=== PATIENT | male | born 1950 | race Caucasian/White ===

== ENCOUNTER 2021-04-05 15:29 | Inpatient (IN) ==
[2021-04-05] MEDS ORDERED: MoRPHine SULFATE 10 MG/ML CARP/VIAL ONE (15:48)
[2021-04-05] MEDS ORDERED: KETOROLAC TROMETHAMINE 15 MG/ML VIAL IV ONE (15:50)
[2021-04-05] MEDS ORDERED: MoRPHine SULFATE 10 MG/ML CARP/VIAL IV STA (15:50)
[2021-04-05] MEDS ORDERED: SODIUM CHLORIDE 0.9% 1000ML 1,000 ML IV ONE (15:50)
--- NOTE | 2021-04-05 15:54 | Emergency Department Note ---
Impression & Plan Prostate CA, Bladder cancer, Abdominal pain ED Provider Note NAME: JOSEPH FARR AGE: 71 SEX: M : 1950 ARRIVES VIA: Walk-In INFORMANT: Patient, ED PROVIDER(S): Kevin Schneider DO CHIEF COMPLAINT: Left testicle abdominal and groin pain HPI: Patient is a 71-year-old male with a past medical history of bladder cancer which has migrated in the pelvis to affect nerves. He has been having pain in his left groin/testicle and lower belly since this past October. It has been gradually getting worse. Pain is currently a 10 out of 10 sharp and stabbing in nature. It is the same type of pain in the same location but just worse. He was at pain management and they attempted to a nerve block but he has had persistent pain. They are unable to get him under control and consequently referred him in for admission. There are discussed with hospitalist. He takes 8 mg of Dilaudid every 4 hours and wears a 50 mcg fentanyl patch. Last bowel movement was today. Denies any nausea or vomiting. No dysuria urgency or frequency. No other exacerbating or remitting factors. ROS: See above HPI for pertinent positives & negatives. A total of 10 systems reviewed and were otherwise negative. PAST MEDICAL HISTORY:See Below PAST SURGICAL HISTORY:See Below FAMILY HISTORY:See Below SOCIAL HISTORY:See Below HOME MEDICATIONS:See Below ALLERGIES:See Below VITALS:See Below PHYSICAL EXAMINATION: GENERAL: Sitting up in bed, significant distress crying and tearful holding left belly EYE EXAM: normal conjunctiva. OROPHARYNX: no exudate, no erythema, lips, buccal mucosa, and tongue normal and mucous membranes are moist NECK: supple, no nuchal rigidity, no adenopathy, non-tender LUNGS: Clear to auscultation. Normal chest wall mechanics HEART: no murmurs, S1 normal and S2 normal : Normal external genitalia. No tenderness in the testicles. ABDOMEN: abdomen soft, non-tender, normo-active bowel sounds, no masses, no rebound or guarding. UPPER EXTREMITIES: upper extremities are grossly normal. LOWER EXTREMITIES: No pitting edema. NEURO EXAM: Normal sensorium, cranial nerves II-XII grossly intact, normal speech, no gross weakness of arms, no gross weakness of legs. MEDICAL DECISION MAKING: Patient is a 71-year-old male who presents the ER for abdominal pain which has been present since October. He was sent in for admission for intrathecal pump placement tomorrow. IV was established blood work was obtained. Labs show no significant leukocytosis and mild anemia 11. BMP with slightly elevated chloride at 110. LFTs bilirubin was unremarkable. Lipase was normal. Patient was given IV fluids morphine x2 and Toradol. Patient was updated bedside discussed with hospitalist admitted for further work-up. Triage Nursing notes reviewed. Limited review of prior medical records performed Vital Signs: reviewed and remarkable for HTN Differential diagnosis: Differential diagnoses includes but is not limited to gastritis, peptic ulcer disease, GERD, gallbladder disease, pancreatitis, small bowel obstruction, acute coronary syndrome, pericarditis, ischemic bowel, irritable bowel disease, irritable bowel syndrome, appendicitis, diverticulitis, malignancy, hernia, urinary tract infection, torsion, perforation, trauma, infectious. ER treatment provided: See below Diagnostics interpreted by me: ECG: none Cardiac Monitoring: An order was placed for continuous cardiac monitoring. The monitor shows a rate of 92 with sinus rhythm. Laboratory studies: As stated above and show below. Imaging studies: See below Consultation(s): Discussed with the hospitalist for further evaluation Procedures: none Critical Care: None Past Med/Surg History Medical History Allergic rhinitis Asthma Bladder cancer CAD (coronary artery disease) Cancer related pain Chronic kidney disease (CKD) stage G3a/A1, moderately decreased glomerular filtration rate (GFR) between 45-59 mL/min/1.73 square meter and albuminuria creatinine ratio less than 30 mg/g First degree AV block GERD (gastroesophageal reflux disease) History of alcohol dependence History of [place] (myocardial infarction) HTN (hypertension) Hyperlipidemia Lumbar disc herniation with radiculopathy L2-3 extrusion Lumbosacral spondylosis Peripheral neuropathy Prostate CA Surgical History H/O prostatectomy History of cardiac catheterization History of cataract extraction History of colonoscopy History of cystoscopy History of esophagogastroduodenoscopy (EGD) History of hernia repair History of ileal conduit History of incision and drainage History of laparotomy History of prostate biopsy History of skin graft History of total cystectomy Status post surgical removal and fulguration of bladder neoplasm Family History Mother Bone cancer Social History Smoking Status: Never smoker Tobacco Type: Cigarettes Hx Alcohol Use: No Hx Substance Use: No Preferred Language: [place] Communication Ability: Effective Hearing Ability: Normal Beliefs That Will Affect Care: None marital status: Current Living Situation: Spouse current occupational status: retired Feels Safe at Home: Yes Safety Concerns: Feels Safe At This Time Assistive Devices: Cane Allergies Allergies Allergy/AdvReac Type Severity Reaction Status Date / Time Sulfa (Sulfonamide Allergy Severe lips swell Verified 04/05/21 13:18 Antibiotics) sulfamethoxazole Allergy Intermediate Rash Verified 04/05/21 13:18 [From Bactrim] trimethoprim [From Bactrim] Allergy Intermediate Rash Verified 04/05/21 13:18 baclofen Allergy Unknown Unverified 04/05/21 13:18 cannabidiol (CBD) extract Allergy Unknown Verified 04/05/21 13:18 Home Meds Home Medications Medication Instructions Recorded Confirmed acetaminophen 325 mg tablet 650 mg PO QID PRN tab 01/07/21 04/05/21 Lactobacillus acidophilus 1,000 mmu cells PO DAILY@1200 04/05/21 04/05/21 [Acidophilus] albuterol sulfate [Ventolin HFA] 2 puff INHALATION Q6H PRN 04/05/21 04/05/21 amlodipine 5 mg PO BID 04/05/21 04/05/21 aspirin [Aspir-81] 81 mg PO DAILY 04/05/21 04/05/21 atorvastatin 80 mg PO HS 04/05/21 04/05/21 bisacodyl 10 mg DC DAILY PRN 04/05/21 04/05/21 carisoprodol [Soma] 350 mg PO TID PRN 04/05/21 04/05/21 carvedilol 12.5 mg PO BID 04/05/21 04/05/21 clotrimazole 1 applic TOPICAL BID PRN 04/05/21 04/05/21 cyanocobalamin (vitamin B-12) 1,000 mcg PO DAILY 04/05/21 04/05/21 [Vitamin B-12] fentanyl 1 patch TRANSDERMAL Q72H 04/05/21 04/05/21 fluticasone propion-salmeterol 1 inh INHALATION BID 04/05/21 04/05/21 [Wixela Inhub] fluticasone propionate [Flonase] 1 spray INTRANASAL DAILY PRN 04/05/21 04/05/21 hydrochlorothiazide 12.5 mg PO DAILY 04/05/21 04/05/21 hydromorphone 8 mg PO Q4H PRN 04/05/21 04/05/21 losartan 50 mg PO DAILY 04/05/21 04/05/21 lubiprostone [Amitiza] 16 mcg PO BID 04/05/21 04/05/21 melatonin 5 mg PO HS PRN 04/05/21 04/05/21 montelukast 10 mg PO DAILY 04/05/21 04/05/21 naloxegol [Movantik] 25 mg PO DAILY 04/05/21 04/05/21 ondansetron 4 mg PO Q8H PRN 04/05/21 04/05/21 pantoprazole 40 mg PO DAILY 04/05/21 04/05/21 polyethylene glycol 3350 17 g PO DAILY 04/05/21 04/05/21 senna 17.2 mg PO BID 04/05/21 04/05/21 triamcinolone acetonide 1 applic TOPICAL BID PRN 04/05/21 04/05/21 Results & Data (ED) Vital Signs Vital Signs - 24 hr 04/05/21 15:35 Temperature 36.7 C Temperature Source Oral Pulse Rate 86 Respiratory Rate 20 Respiratory Effort / Characteristics Non-Labored Respiratory Depth Normal Blood Pressure 156/85 H Blood Pressure Mean 108 Pulse Oximetry 96 Oxygen Delivery Method Room Air Sepsis Recent Fever Within 48 Hours No Sepsis New/Unexplained Change in Mental Status N/A Sepsis Action Taken by Nursing No Action Required Laboratory Data Result diagrams: 04/05/21 17:07 04/05/21 17:07 Lab Results 04/05/21 04/05/21 Range/Units 16:04 16:04 COVID-19 Eval Order Covid19 at [facility] SARS-CoV-2 (PCR) NEGATIVE (Negative) Administered Medications Sodium Chloride (Nss 1000ml) 1,000 mls @ 15 mls/hr IV .Q24H YONATHAN Stop: 04/19/21 19:16 Last Admin: 04/05/21 21:44 Dose: 15 mls/hr Documented by: [id number] Morphine Sulfate (Morphine Sulfate Head Wrestling Coach 30 Mg/30 Ml) 30 mg IV PRN PRN; Protocol PRN Reason: [employer] Pain Titration Stop: 04/19/21 19:14 Last Admin: 04/05/21 21:45 Dose: 30 mg Documented by: [id number] Cosigned by: [id number] Discontinued Medications Sodium Chloride (Nss 1000ml) 1,000 mls @ 999 mls/hr IV .Q1H1M ONE Stop: 04/05/21 16:50 Last Infusion: 04/05/21 16:58 Dose: 0 mls/hr Documented by: [id number] Admin: 04/05/21 15:58 Dose: 999 mls/hr Documented by: [id number] Ketorolac Tromethamine (Ketorolac Tromethamine 15 Mg/Ml Vial) 15 mg IV NOW ONE Stop: 04/05/21 15:51 Last Admin: 04/05/21 15:59 Dose: 15 mg Documented by: [id number] Morphine Sulfate (Morphine Sulfate 10 Mg/Ml Carp/Vial) Confirm Administered Dose 10 mg .ROUTE .STK-MED ONE Stop: 04/05/21 15:49 Last Admin: 04/05/21 19:19 Dose: Not Given Documented by: [id number] Morphine Sulfate (Morphine Sulfate 10 Mg/Ml Carp/Vial) 8 mg IV NOW STA Stop: 04/05/21 15:51 Last Admin: 04/05/21 15:53 Dose: 8 mg Documented by: [id number] Morphine Sulfate (Morphine Sulfate 4 Mg/Ml 1 Ml Carp\Vial) 4 mg IV NOW STA Stop: 04/05/21 16:24 Last Admin: 04/05/21 16:29 Dose: 4 mg Documented by: [id number] Morphine Sulfate (Morphine Sulfate 4 Mg/Ml 1 Ml Carp\Vial) 4 mg IV NOW STA Stop: 04/05/21 16:55 Last Admin: 04/05/21 16:59 Dose: 4 mg Documented by: [id number] Discharge Plan Visit Data Chief Complaint: Pain (Generalized) Stated Complaint: PAIN ED Provider: Kevin Schneider Discharge Problem: Prostate CA, Bladder cancer, Abdominal pain Patient Disposition: Admitted As Inpatient Discharge Instructions Interventions: ED Discharge Assessment Last Done: 04/05/21 18:31 Discharge Problem: Bladder cancer Qualifiers: Bladder location: unspecified site Qualified Code(s): C67.9 - Malignant neoplasm of bladder, unspecified Abdominal pain Qualifiers: Abdominal location: unspecified location Qualified Code(s): R10.9 - Unspecified abdominal pain
[2021-04-05] MEDS ORDERED: MoRPHine SULFATE 4 MG/ML 1 ML CARP\\VIAL IV STA ×2 (16:23→16:54)
--- NOTE | 2021-04-05 16:46 | History & Physical Report ---
Date of Service April 05, 2021 Assessment & Plan (1) Bladder cancer: (2) Cancer related pain: This is a 71-year-old male who has significant past medical history of CAD, HTN, HLD, hypertriglyceridemia, first-degree AV block, asthma, GERD, history of prostate cancer, metastatic bladder cancer status post resection with ileal conduit now following palliative care secondary to uncontrolled pain presents to ED from pain management to be admitted for MEAT APPRENTICE pump. Patient with metastatic bladder cancer status post cystectomy and ileoconduit being admitted for uncontrolled cancer related pain. He follows with palliative care medicine for pain management and recently pain management with Dr. Delgado. On 03/28 he underwent a gastric femoral nerve block and today underwent a superior hypogastric nerve block with mild relief. admit to med tele consult Pain management - Dr. Delgado to see pt later this evening NPO after midnight, ASA on hold morphine MEAT APPRENTICE pump ordered, max 10mg per hour, may need to increase based on needs PO dilaudid 4mg q3h prn continue fentanyl patch 50mcg q72hr, due to be changed tomorrow scheduled APAP 1000g TID prn ibuprofen 600mg QID fall precautions (3) CAD (coronary artery disease): no chest pain/sob continue losartan, statin ASA on hold due to intrathecal pump placement tomorrow resume when able per Dr. Delgado (4) HTN (hypertension): bp stable continue amlodipine, losartan and hctz (5) Hyperlipidemia: continue statin (6) Chronic kidney disease (CKD) stage G3a/A1, moderately decreased glomerular filtration rate (GFR) between 45-59 mL/min/1.73 square meter and albuminuria creatinine ratio less than 30 mg/g: baseline cr 1.1-1.4 bun/cr pending monitor renal fxn, prn ibuprofen ordered (7) DVT prophylaxis: SCD/TEDS Dispo: med tele PCP: Augustin Fish FULL Code Pt was seen and examined in collaboration with Dr. Hillman, please see addendum History of Present Illness Chief Complaint: Uncontrolled metastatic cancer pain referred by pain management Primary Care Provider: NO PCP This is a 71-year-old male who has significant past medical history of CAD, HTN, HLD, hypertriglyceridemia, first-degree AV block, asthma, GERD, history of prostate cancer, metastatic bladder cancer status post resection with ileal conduit now following palliative care secondary to uncontrolled pain presents to ED from pain management to be admitted for MEAT APPRENTICE pump. He is currently established with palliative medicine he was been managing his pain. He is currently on fentanyl patch which was recently increased to 50 mcg every 72 hours, Dilaudid 8 mg every 4 hours as needed, Soma as needed and today underwent a superior hypogastric nerve block by pain management. On 03/28 he also underwent a genitofemoral nerve block. Due to uncontrolled pain he was recommended for admission for morphine MEAT APPRENTICE pump and intrathecal pump. Currently he complains of lower abdominal pain that is fleeting, comes and goes, described as burning, worsening. He does feel it gets improved with NSAIDS but these were stopped due to increase in renal function. He states he will be fine one minute and then the next pain will take him to the ground. is at bedside. He also has tried ice with minimal relief. He denies f/c/s, dizziness, lightheaded, chest pain, sob, uri sx, cough, n/v/d. He does have chronic opiate induced constipation which has been improved with amitiza. He is hemodynamically stable and labs are pending. Allergies Allergy/AdvReac Type Severity Reaction Status Date / Time Sulfa (Sulfonamide Allergy Severe lips swell Verified 04/05/21 13:18 Antibiotics) sulfamethoxazole Allergy Intermediate Rash Verified 04/05/21 13:18 [From Bactrim] trimethoprim [From Bactrim] Allergy Intermediate Rash Verified 04/05/21 13:18 baclofen Allergy Unknown Unverified 04/05/21 13:18 cannabidiol (CBD) extract Allergy Unknown Verified 04/05/21 13:18 Home Medications Medication Instructions Recorded Confirmed Type acetaminophen 325 mg tablet 650 mg PO QID PRN tab 01/07/21 04/05/21 History Lactobacillus acidophilus 1,000 mmu cells PO DAILY@1200 04/05/21 04/05/21 History [Acidophilus] albuterol sulfate [Ventolin HFA] 2 puff INHALATION Q6H PRN 04/05/21 04/05/21 History amlodipine 5 mg PO BID 04/05/21 04/05/21 History aspirin [Aspir-81] 81 mg PO DAILY 04/05/21 04/05/21 History atorvastatin 80 mg PO HS 04/05/21 04/05/21 History bisacodyl 10 mg MS DAILY PRN 04/05/21 04/05/21 History carisoprodol [Soma] 350 mg PO TID PRN 04/05/21 04/05/21 History carvedilol 12.5 mg PO BID 04/05/21 04/05/21 History clotrimazole 1 applic TOPICAL BID PRN 04/05/21 04/05/21 History cyanocobalamin (vitamin B-12) 1,000 mcg PO DAILY 04/05/21 04/05/21 History [Vitamin B-12] fentanyl 1 patch TRANSDERMAL Q72H 04/05/21 04/05/21 History fluticasone propion-salmeterol 1 inh INHALATION BID 04/05/21 04/05/21 History [Wixela Inhub] fluticasone propionate [Flonase] 1 spray INTRANASAL DAILY PRN 04/05/21 04/05/21 History hydrochlorothiazide 12.5 mg PO DAILY 04/05/21 04/05/21 History hydromorphone 8 mg PO Q4H PRN 04/05/21 04/05/21 History losartan 50 mg PO DAILY 04/05/21 04/05/21 History lubiprostone [Amitiza] 16 mcg PO BID 04/05/21 04/05/21 History melatonin 5 mg PO HS PRN 04/05/21 04/05/21 History montelukast 10 mg PO DAILY 04/05/21 04/05/21 History naloxegol [Movantik] 25 mg PO DAILY 04/05/21 04/05/21 History ondansetron 4 mg PO Q8H PRN 04/05/21 04/05/21 History pantoprazole 40 mg PO DAILY 04/05/21 04/05/21 History polyethylene glycol 3350 17 g PO DAILY 04/05/21 04/05/21 History senna 17.2 mg PO BID 04/05/21 04/05/21 History triamcinolone acetonide 1 applic TOPICAL BID PRN 04/05/21 04/05/21 History Past Med/Surg History Medical History Allergic rhinitis Asthma Bladder cancer CAD (coronary artery disease) Cancer related pain Chronic kidney disease (CKD) stage G3a/A1, moderately decreased glomerular filtration rate (GFR) between 45-59 mL/min/1.73 square meter and albuminuria creatinine ratio less than 30 mg/g First degree AV block GERD (gastroesophageal reflux disease) History of alcohol dependence History of [place] (myocardial infarction) HTN (hypertension) Hyperlipidemia Lumbar disc herniation with radiculopathy L2-3 extrusion Lumbosacral spondylosis Peripheral neuropathy Prostate CA Surgical History H/O prostatectomy History of cardiac catheterization History of cataract extraction History of colonoscopy History of cystoscopy History of esophagogastroduodenoscopy (EGD) History of hernia repair History of ileal conduit History of incision and drainage History of laparotomy History of prostate biopsy History of skin graft History of total cystectomy Status post surgical removal and fulguration of bladder neoplasm Family History Mother Bone cancer Social History Smoking Status: Never smoker Tobacco Type: Cigarettes Hx Alcohol Use: No Hx Substance Use: No Preferred Language: Luxembourgish Communication Ability: Effective Hearing Ability: Normal Beliefs That Will Affect Care: None marital status: Current Living Situation: Spouse current occupational status: retired Feels Safe at Home: Yes Safety Concerns: Feels Safe At This Time Assistive Devices: Cane Review of Systems Review of Systems: All systems reviewed & are unremarkable except as noted in HPI & below Physical Exam Physical Exam: Constitutional: WD/WN, vitals as above, appears in pain, sitting up in bed, pleasant, answers questions appropriately Head: Normocephalic, Atraumatic Eyes: PERRL, conjunctivae normal, anicteric sclerae ENMT: external ear and nose normal, oropharynx normal Neck: trachea midline, no thyromegaly normal visual inspection Respiratory: normal respiratory effort, lungs clear to auscultation, no wheeze, rales, rhonchi. Normal insp/exp effort, no accessory muscle use Cardiovascular: RRR, no murmur, no edema Vessels: no JVD or carotid bruit Chest: normal inspection of chest Abdomen: +Ileoconduit, normal bowel sounds, soft, nontender, no hepatosplenomegaly Musculoskeletal: no cyanosis or clubbing, extremities motor strength 5/5 Skin: no rashes, warm and dry normal turgor Neurologic: PERRL, EOMI, accommodation nl, no face palsy, no dysarthria CN's II-XI intact bilaterally and moves all extremities Psychiatric: A+Ox3, euthymic affect Lymphatic: no cervical or axillary lymphadenopathy : normal Results & Data Results & Data ([facility]) Vital Signs (Past 12 Hours) Vital Signs Temp Pulse Resp BP Pulse Ox 04/05/21 15:35 36.7 C 86 20 156/85 H 96 Medications Administered Medication List Discontinued Medications Sodium Chloride (Nss 1000ml) 1,000 mls @ 999 mls/hr IV .Q1H1M ONE Stop: 04/05/21 16:50 Last Infusion: 04/05/21 16:58 Dose: 0 mls/hr Documented by: [id number] Admin: 04/05/21 15:58 Dose: 999 mls/hr Documented by: [id number] Ketorolac Tromethamine (Ketorolac Tromethamine 15 Mg/Ml Vial) 15 mg IV NOW ONE Stop: 04/05/21 15:51 Last Admin: 04/05/21 15:59 Dose: 15 mg Documented by: [id number] Morphine Sulfate (Morphine Sulfate 10 Mg/Ml Carp/Vial) 8 mg IV NOW STA Stop: 04/05/21 15:51 Last Admin: 04/05/21 15:53 Dose: 8 mg Documented by: [id number] Morphine Sulfate (Morphine Sulfate 4 Mg/Ml 1 Ml Carp\Vial) 4 mg IV NOW STA Stop: 04/05/21 16:24 Last Admin: 04/05/21 16:29 Dose: 4 mg Documented by: [id number] Morphine Sulfate (Morphine Sulfate 4 Mg/Ml 1 Ml Carp\Vial) 4 mg IV NOW STA Stop: 04/05/21 16:55 Last Admin: 04/05/21 16:59 Dose: 4 mg Documented by: [id number] COVID-19 Results Results COVID-19 Adm Lab Results: RBC 3.95 M/uL (4.7-6.1) L 04/05/21 WBC 8.10 K/uL (4.8-10.8) 04/05/21 Hgb 11.5 g/dL (14.0-18.0) L 04/05/21 Hct 34.8 % (42-52) L 04/05/21 Plt Count 265 K/uL (130-400) 04/05/21 Neutrophils (%) (Auto) 85.6 % 04/05/21 Lymphocytes (%) (Auto) 6.2 % 04/05/21 Monocytes # (Auto) 0.53 K/uL (0.11-0.59) 04/05/21 Eosinophils # (Auto) 0.12 K/uL (0-0.5) 04/05/21 Immature Granulocyte % (Auto) 0.1 % 04/05/21 Neutrophils # (Auto) 6.93 K/uL (1.4-6.5) H 04/05/21 Lymphocytes # (Auto) 0.50 K/uL (1.2-3.4) L 04/05/21 Monocytes # (Auto) 0.53 K/uL (0.11-0.59) 04/05/21 Eosinophils # (Auto) 0.12 K/uL (0-0.5) 04/05/21 Basophils # (Auto) 0.01 K/uL (0-0.2) 04/05/21 Immature Granulocyte # (Auto) 0.01 K/uL (0.00-0.02) 04/05/21 Na 142 mmol/L (136-145) 04/05/21 K 4.4 mmol/L (3.5-5.1) 04/05/21 Cl 110 mmol/L (98-107) H 04/05/21 CO2 31 mmol/L (21-32) 04/05/21 Anion Gap 1.0 (3-11) L 04/05/21 BUN 19 mg/dl (7-18) H 04/05/21 Creatinine 0.88 mg/dl (0.6-1.4) 04/05/21 BUN/Creatinine Ratio 22.1 (10-20) H 04/05/21 Glucose Level 91 mg/dl (70-99) 04/05/21 Ca 9.2 mg/dl (8.5-10.1) 04/05/21 Total Bilirubin 0.4 mg/dl (0.2-1) 04/05/21 AST/SGOT 13 U/L (15-37) L 04/05/21 ALT/SGPT 21 U/L (12-78) 04/05/21 Alkaline Phosphatase 92 U/L (45-117) 04/05/21 Total Protein 6.9 gm/dl (6.4-8.2) 04/05/21 Albumin 3.5 gm/dl (3.4-5.0) 04/05/21 Globulin 3.4 gm/dl (2.5-4.0) 04/05/21 Albumin/Globulin Ratio 1.0 (0.9-2) 04/05/21 COVID-19 PCR NEGATIVE (Negative) 04/05/21 Code Status & VTE Plan Code Status Full Code VTE Prophylaxis Plan VTE Prophylaxis will be ordered: Yes Reason for no VTE drug order: Contraindicated Supervising Physician Co-Signing Physician Notes I have seen and examined the patient and have discussed the case with the provider above. I agree with the assessment and plan as stated. 71 yo M with h/o prostate and more recently bladder cancer with metastasis s/p pelvic radiation who has severe nerve pain on the left pelvis. He is under the care of pain management who injected his hip today. He was still having severe pain and came to the ER. VSS and physical exam as above. Continue with morphine pain MEAT APPRENTICE, dilaudid PO for breakthrough and fentanyl patch recently increased to 50mcg. Discussed gabapentin and Cymbalta with him, both of which he has tried and not had a success with. Pain managment consulted for titration of pain regimen. DO Rafy
[2021-04-05 17:49] LABS: Basophils # (auto) 0.01 K/uL (0-0.2); Basophils % (auto) 0.1 %; Eosinophils # (auto) 0.12 K/uL (0-0.5); Eosinophils % (auto) 1.5 %; Hematocrit (blood only) 34.8 % (42-52); Hemoglobin 11.5 g/dL (14.0-18.0); Immature Granulocytes # (auto) 0.01 K/uL (0.00-0.02); Immature Granulocytes % (auto) 0.1 %; Lymphocytes % (auto) 6.2 %; Mean Corpuscular Hemoglobin 29.1 pg (25-34); Mean Corpuscular Volume 88.1 fL (80-100); Monocytes # (auto) 0.53 K/uL (0.11-0.59); Monocytes % (auto) 6.5 %; Neutrophils # (auto) 6.93 K/uL (1.4-6.5); Neutrophils % (auto) 85.6 %; Platelet Count 265 K/uL (130-400); RDW Coefficient of Variation 13.4 % (11.5-14.5); RDW Standard Deviation 43.3 fL (36.4-46.3); Red Blood Count 3.95 M/uL (4.7-6.1)
[2021-04-05 17:52] LABS: Albumin Level 3.5 gm/dl (3.4-5.0); BUN Creatinine Ratio 22.1 (10-20); Calcium 9.2 mg/dl (8.5-10.1); Creatinine Clr Calc Pharmacy 69.9 ml/min; Est GFR (African American) 98.8 ml/min; Est GFR (Non-African American) 85.2 ml/min; Potassium 4.4 mmol/L (3.5-5.1)
[2021-04-05 17:54] LABS: Bilirubin,Total 0.4 mg/dl (0.2-1); Globulin 3.4 gm/dl (2.5-4.0); Total Protein 6.9 gm/dl (6.4-8.2)
[2021-04-05] MEDS ORDERED: FLUTICASONE PROPIONATE NA SPR 16 GM BTL PRN (19:15)
[2021-04-05] MEDS ORDERED: HYDROmorphone HCL 2 MG TAB PO PRN (19:15)
[2021-04-05] MEDS ORDERED: NALOXONE HCL 0.4 MG/1 ML VIAL/CARP IV PRN (19:15)
[2021-04-05] MEDS ORDERED: ONDANSETRON INJ 2 MG/ML 2 ML VIAL IV PRN (19:15)
[2021-04-05] MEDS ORDERED: ALBUTEROL HFA 8 GM INHALER INH PRN (19:15)
[2021-04-05] MEDS ORDERED: ALUMINUM/MAGNESIUM SUSP 30 ML UDC PO PRN (19:15)
[2021-04-05] MEDS ORDERED: bisacodyL 10 MG SUPP PR PRN (19:15)
[2021-04-05] MEDS ORDERED: POLYETHYLENE (MIRALAX) 17 GM PACK PO PRN (19:15)
[2021-04-05] MEDS ORDERED: CARISOPRODOL 350 MG TABLET PO PRN (19:15)
[2021-04-05] MEDS ORDERED: IBUPROFEN 600 MG TAB PO PRN (19:15)
[2021-04-05] MEDS ORDERED: MAGNESIUM HYDROXIDE SUSP 30 ML UDC PO PRN (19:15)
--- NOTE | 2021-04-05 20:15 | Pain Management Consultation ---
Date of Consultation April 05, 2021 Assessment & Plan (1) Cancer related pain: 1. Recommend continuation of fentanyl 50 mcg every 72 hours and hydromorphone 8 mg p.o. every 4 as needed. In addition recommend utilization of a morphine IV SEMIAUTOMATIC TAPER OPERATOR 1mg/6min/10mg/hr max to augment current pain relief. 2. Patient will be n.p.o. after midnight for a planned epidural morphine pump trial to determine best dose for potential implantation of intrathecal morphine pump. Based off of his current utilization IV morphine equivalents equal 97.33 mg/day. Thus recommend morphine 0.4 mg/h as an initial starting dose. This will likely be titrated pending pain relief as it is a direct one-to-one conversion. 3. Recommend addition of Cymbalta 30 mg p.o. every morning to augment descending pain regulatory pathways. 4. The procedure was discussed in detail with the patient and consent was obtained and placed on the chart. 5. Thank you for this consultation. (2) Bladder cancer: (3) Prostate CA: History of Present Illness Attending Physician: Brunilda Hillman, History of Present Illness 71-year-old male with multiple pain complaints today #1 bladder suprapubic pain #2 left testicle shooting radiating pain ranging between 8 and 10 of 10. Pain is characterized as sharp stabbing aching cramping burning at times. He has a complex medical history associated with previous history of bladder cancer status post cystectomy and ileal conduit formation 2005. In addition he has a history of prostate cancer status post prostatectomy in 2003. He also has a history of bowel obstruction leading to exploratory laparotomy. He has finished working with radiation therapy and continues to work with medical oncology at [facility] and has his next follow-up appointment in April 2021. Current treatment is on hold pending updated imaging however, life expectancy is likely greater than 3 to 6 months. In a discussion with Yocasta Kruse nurse practitioner today pain control as an outpatient has been difficult which prompted rereferral to the pain management office and trial of left genitofemoral nerve block which was performed on 03/28/2021 without significant benefit. Today he underwent a superior hypogastric plexus block without benefit. As he was tearful and crying in the office today he was recommended to proceed to the [facility] emergency room for admission for cancer related. He currently is utilizing fentanyl 50 mcg every 72 hour patches and hydromorphone 8 mg p.o. every 4, Tylenol, NSAIDs without significant reduction in pain. He notes significant constipation and some problems with mental clarity secondary to opiates. In addition past utilization of gabapentin has led to cognitive side effects. He denies any foot drop, motor weakness, bowel incontinence. He denies any fever chills or night sweats at this time. Pain Assessment Full Body Front + Back: 1. [facility] Combined Pain Scale: 9-Agonizing - Cannot function. Uncontrolled screaming. Pain scale - at its best (0-10): 8 Pain scale - at its worst (0-10): 10 Allergies Allergy/AdvReac Type Severity Reaction Status Date / Time Sulfa (Sulfonamide Allergy Severe lips swell Verified 04/05/21 13:18 Antibiotics) sulfamethoxazole Allergy Intermediate Rash Verified 04/05/21 13:18 [From Bactrim] trimethoprim [From Bactrim] Allergy Intermediate Rash Verified 04/05/21 13:18 baclofen Allergy Unknown Unverified 04/05/21 13:18 cannabidiol (CBD) extract Allergy Unknown Verified 04/05/21 13:18 Home Medications Medication Instructions Recorded Confirmed Type acetaminophen 325 mg tablet 650 mg PO QID PRN tab 01/07/21 04/05/21 History Lactobacillus acidophilus 1,000 mmu cells PO DAILY@1200 04/05/21 04/05/21 History [Acidophilus] albuterol sulfate [Ventolin HFA] 2 puff INHALATION Q6H PRN 04/05/21 04/05/21 History amlodipine 5 mg PO BID 04/05/21 04/05/21 History aspirin [Aspir-81] 81 mg PO DAILY 04/05/21 04/05/21 History atorvastatin 80 mg PO HS 04/05/21 04/05/21 History bisacodyl 10 mg [place] DAILY PRN 04/05/21 04/05/21 History carisoprodol [Soma] 350 mg PO TID PRN 04/05/21 04/05/21 History carvedilol 12.5 mg PO BID 04/05/21 04/05/21 History clotrimazole 1 applic TOPICAL BID PRN 04/05/21 04/05/21 History cyanocobalamin (vitamin B-12) 1,000 mcg PO DAILY 04/05/21 04/05/21 History [Vitamin B-12] fentanyl 1 patch TRANSDERMAL Q72H 04/05/21 04/05/21 History fluticasone propion-salmeterol 1 inh INHALATION BID 04/05/21 04/05/21 History [Wixela Inhub] fluticasone propionate [Flonase] 1 spray INTRANASAL DAILY PRN 04/05/21 04/05/21 History hydrochlorothiazide 12.5 mg PO DAILY 04/05/21 04/05/21 History hydromorphone 8 mg PO Q4H PRN 04/05/21 04/05/21 History losartan 50 mg PO DAILY 04/05/21 04/05/21 History lubiprostone [Amitiza] 16 mcg PO BID 04/05/21 04/05/21 History melatonin 5 mg PO HS PRN 04/05/21 04/05/21 History montelukast 10 mg PO DAILY 04/05/21 04/05/21 History naloxegol [Movantik] 25 mg PO DAILY 04/05/21 04/05/21 History ondansetron 4 mg PO Q8H PRN 04/05/21 04/05/21 History pantoprazole 40 mg PO DAILY 04/05/21 04/05/21 History polyethylene glycol 3350 17 g PO DAILY 04/05/21 04/05/21 History senna 17.2 mg PO BID 04/05/21 04/05/21 History triamcinolone acetonide 1 applic TOPICAL BID PRN 04/05/21 04/05/21 History Pain History Pain Intensity Pain scale - at its best (0-10): 8 Pain scale - at its worst (0-10): 10 Patient History Medical History Allergic rhinitis Asthma Bladder cancer CAD (coronary artery disease) Cancer related pain Chronic kidney disease (CKD) stage G3a/A1, moderately decreased glomerular filtration rate (GFR) between 45-59 mL/min/1.73 square meter and albuminuria creatinine ratio less than 30 mg/g First degree AV block GERD (gastroesophageal reflux disease) History of alcohol dependence History of [place] (myocardial infarction) HTN (hypertension) Hyperlipidemia Lumbar disc herniation with radiculopathy L2-3 extrusion Lumbosacral spondylosis Peripheral neuropathy Prostate CA Surgical History H/O prostatectomy History of cardiac catheterization History of cataract extraction History of colonoscopy History of cystoscopy History of esophagogastroduodenoscopy (EGD) History of hernia repair History of ileal conduit History of incision and drainage History of laparotomy History of prostate biopsy History of skin graft History of total cystectomy Status post surgical removal and fulguration of bladder neoplasm Family History Mother Bone cancer Social History Smoking Status: Former smoker Tobacco Type: Cigarettes Hx Alcohol Use: Yes (History ) Hx Substance Use: No Hearing Ability: Normal Beliefs That Will Affect Care: None marital status: Current Living Situation: Spouse current occupational status: retired Feels Safe at Home: Yes Physical Exam Physical Exam: Physical Exam Constitutional: Well-developed, well-nourished, thin and slightly frail. Psych: Awake, alert, and oriented 3 with normal affect and mood. Recent memory appears grossly intact Eyes: Pupils are equally round and reactive to light with normal size pupils, eyelids appear normal Ear, nose, mouth, and throat: Moist nasal and oral membranes, lips and tongues appear normal, no external ear abnormalities are noted Neck: The trachea is midline without deviation and no thyromegaly is noted Respiratory: Normal respiratory effort without distress, no audible wheezes or rhonchi CV: Normal S1 and S2, carotid upstroke is within normal limits Chest: Deferred GI/abdomen: There is evidence of a old exploratory laparotomy scar as well as ileal conduit. There is no allodynia surrounding laparotomy scar. Patient is exquisitely tender over left ilioinguinal, genitofemoral nerves. He is exqui sitely tender over anatomic position of bladder to the level of the umbilicus bilaterally. Abdomen is nondistended and soft. Musculoskeletal: Head is normocephalic and atraumatic, gait is slow and guarded Cervical: Lordotic curve: Normal Range of motion is normal with extension, flexion, side-bending, rotation Strength: Strength is grossly equal bilaterally with 5 out of 5 strength in all planes Thoracic: Kyphotic curve: Slight increased kyphosis Range of motion is normal with extension, flexion, side-bending, rotation Tenderness: Nontender over the axial midline Facet provocation: Negative bilaterally Scoliosis present: None Step-off injuries: None Myofascial spasm: Mild spasm over left rhomboid. No discrete trigger points noted Lumbar: Lordotic curve: Loss of lumbar lordosis Range of motion is decreased in all planes Tenderness: Mildly tender over the axial midline left equal to right L2-L4 Facet provocation: Marginally positive bilaterally Straight leg raise: Negative bilaterally Step-off injuries: None Strength: Strength is equal bilaterally with 5 out of 5 strength in all planes Sensation of lower extremities: Intact bilaterally, with the exception of global reduction in sensation bilateral stocking distribution to the ankle. Deep tendon reflexes: Rated at 1+ in bilateral L4 and S1 Myofascial spasm: Mild spasm. No discrete trigger points noted Greater trochanters: Nontender bilaterally Sacroiliac joints: Nontender bilaterally Pathologic reflexes noted: None Skin: No rashes, lesions, ulcers, or induration noted Neuro: No nystagmus noted, the tongue is midline, the patient is able to rotate their head bilaterally : Deferred Results (Pain Clinic) Diagnostic Review CT: non enhanced CT Findings: 12/21/20 CT of the abdomen and pelvis reveals a 3.1 x 2.6 x 2.5 cm left mass in the hemipelvis status post cystectomy.
[2021-04-05] MEDS ORDERED: MELATONIN 3 MG TAB PO PRN (20:39)
[2021-04-05] MEDS: SODIUM CHLORIDE 0.9% 1000ML 1,000 ML IV SCH (21:44)
[2021-04-05] MEDS: MoRPHine SULFATE PCA 30 MG/30 ML IV PRN (21:45)
[2021-04-05] MEDS: ATORVASTATIN 40 MG TAB PO SCH (21:55)
[2021-04-05] MEDS: amLODIPine BESYLATE 5 MG TAB PO SCH (21:55)
[2021-04-05] MEDS: ACETAMINOPHEN 500 MG TAB PO SCH (21:55)
[2021-04-05] MEDS: SENNA 8.6 MG TAB PO SCH (21:56)
[2021-04-05] MEDS: carvediloL 12.5 MG TAB PO SCH (21:56)
[2021-04-05] MEDS: LUBIPROSTONE 8 MCG CAP PO SCH (21:56)
[2021-04-05] MEDS: CHECK fentaNYL PATCH PLACEMENT SCH (23:27)
[2021-04-06] MEDS: MoRPHine SULFATE PCA 30 MG/30 ML IV PRN (07:15)
[2021-04-06 07:47] LABS: Hemoglobin 11.2 g/dL (14.0-18.0); Mean Corpuscular Hemoglobin 29.1 pg (25-34); Mean Corpuscular Volume 90.9 fL (80-100); Mean Platelet Volume 10.1 fL (7.4-10.4); Platelet Count 278 K/uL (130-400); RDW Coefficient of Variation 13.7 % (11.5-14.5); RDW Standard Deviation 45.9 fL (36.4-46.3); Red Blood Count 3.85 M/uL (4.7-6.1); White Blood Count 6.27 K/uL (4.8-10.8)
--- NOTE | 2021-04-06 07:59 | History & Physical Bridge Note ---
Date of Service April 06, 2021 History & Physical Bridge Note History & Physical Bridge Note Jose Rios is a 71-year-old male with a history of suprapubic pain, perineal pain, testicular pain due to malignancy as well as bilateral lower extremity radicular pain. He has failed multiple therapeutic modalities including genitofemoral nerve block, hypogastric plexus block, use of antineuropathic medications, nonopioid and opiate analgesics with persistent symptoms. Patient is scheduled today for placement of epidural catheter with trial of opioid infusion to determine the efficacy and any side effects in consideration of implantation of intrathecal medication delivery system. Patient's past medical history, surgical history, medication and allergy list has been reviewed and no changes noted since his last history and physical examination performed. Review of systems is negative for any cardiac, pulmonary, GI, , endocrine or acute neurological complaints other than what is listed in the HPI section. Review of laboratory studies indicates no contraindication to proceeding with the proposed plan ASSESSMENT: Malignancy related suprapubic, perineal and testicular pain. Lumbar radiculitis due to intervertebral disc disorder. RECOMMENDATIONS: Proceed with placement of lumbar epidural catheter under fluoroscopic guidance with infusion of preservative-free morphine determine the efficacy and any potential side effects. Potential risks including infection, bleeding, hematoma or seroma formation at the wound sites, nerve injury, injury to the spinal cord, dural puncture with persistent cerebrospinal fluid leak, malfunction of the pump, breakage and migration of the catheter, additional surgical procedures to correct these complications as well as persistent symptoms after the procedure and risks associated with anesthesia have been carefully reviewed in detail with the patient. Patient was also informed that the pump will require routine refills on an ongoing basis. Alternative treatments were also discussed. Patient's questions were answered and gives informed consent to proceed with the proposed procedure.
[2021-04-06 08:17] LABS: BUN Creatinine Ratio 27.7 (10-20); Calcium 9.3 mg/dl (8.5-10.1); Creatinine Clr Calc Pharmacy 70.7 ml/min; Est GFR (African American) 99.2 ml/min; Est GFR (Non-African American) 85.6 ml/min; Potassium 4.2 mmol/L (3.5-5.1)
[2021-04-06] MEDS: CHECK fentaNYL PATCH PLACEMENT SCH ×3 (08:51→23:27)
[2021-04-06] MEDS: hydroCHLOROthiazide 25 MG TAB PO SCH (08:59)
[2021-04-06] MEDS ORDERED: fentaNYL 50 MCG/HR TDSY TD SCH (09:00)
[2021-04-06] MEDS: amLODIPine BESYLATE 5 MG TAB PO SCH ×2 (09:00→20:47)
[2021-04-06] MEDS: carvediloL 12.5 MG TAB PO SCH ×2 (09:01→20:46)
[2021-04-06] MEDS: LOSARTAN POTASSIUM 50 MG TAB PO SCH (09:02)
[2021-04-06] MEDS: ACETAMINOPHEN 500 MG TAB PO SCH ×3 (09:06→20:47)
[2021-04-06] MEDS: MONTELUKAST SODIUM 10 MG TABLET PO SCH (09:07)
[2021-04-06] MEDS: PANTOprazole 40 MG TAB PO SCH (09:08)
[2021-04-06] MEDS: FLUTICASONE/VILANTEROL 100/25MCG 14 PUFFS/INHALER INH SCH (09:09)
[2021-04-06] MEDS: SENNA 8.6 MG TAB PO SCH ×2 (09:30→20:45)
[2021-04-06] MEDS: POLYETHYLENE (MIRALAX) 17 GM PACK PO SCH (09:30)
[2021-04-06] MEDS: LUBIPROSTONE 8 MCG CAP PO SCH ×2 (09:30→20:46)
[2021-04-06] MEDS ORDERED: DexMEDEtomidine HCL IV 100 MCG/ML VIAL ONE (10:43)
[2021-04-06] MEDS ORDERED: SODIUM CHLORIDE 0.9% INJ 10 ML VIAL ONE (10:43)
[2021-04-06] MEDS ORDERED: fentaNYL citrate 100 MCG/2 ML VIAL ONE ×2 (10:51→11:24)
--- NOTE | 2021-04-06 11:20 | Anesthesiology Consultation ---
Date of Service April 06, 2021 Assessment & Plan Chart Review Chart Review: Acceptable Risk for Surgery Consults Requested none History Surgery Operation Date: 04/06/21 10:40 Proposed Procedures p Intrathecal Morphine Trial - Dash Soto MD, PP Height/Weight Height: 5 ft 7 in Weight: 68 kg Allergies Allergy/AdvReac Type Severity Reaction Status Date / Time Sulfa (Sulfonamide Allergy Severe lips swell Verified 04/05/21 13:18 Antibiotics) sulfamethoxazole Allergy Intermediate Rash Verified 04/05/21 13:18 [From Bactrim] trimethoprim [From Bactrim] Allergy Intermediate Rash Verified 04/05/21 13:18 baclofen Allergy Unknown Unverified 04/05/21 13:18 cannabidiol (CBD) extract Allergy Unknown Verified 04/05/21 13:18 Medications Home Medications Medication Instructions Recorded Confirmed Last Taken acetaminophen 325 mg tablet 650 mg PO QID PRN tab 01/07/21 04/05/21 Unknown (Tylenol) Lactobacillus acidophilus 1,000 mmu cells PO DAILY@1200 04/05/21 04/05/21 Unknown albuterol sulfate 90 mcg/actuation 2 puff INHALATION Q6H PRN 04/05/21 04/05/21 Unknown aerosol inhaler (Ventolin HFA) amlodipine 5 mg tablet 5 mg PO BID 04/05/21 04/05/21 Unknown aspirin 81 mg tablet,delayed 81 mg PO DAILY 04/05/21 04/05/21 Unknown release atorvastatin 80 mg tablet 80 mg PO HS 04/05/21 04/05/21 Unknown bisacodyl 10 mg rectal suppository 10 mg [place] DAILY PRN 04/05/21 04/05/21 Unknown carisoprodol 350 mg tablet (Soma) 350 mg PO TID PRN 04/05/21 04/05/21 Unknown carvedilol 12.5 mg tablet 12.5 mg PO BID 04/05/21 04/05/21 Unknown clotrimazole 1 % topical cream 1 applic TOPICAL BID PRN 04/05/21 04/05/21 Unknown cyanocobalamin (vitamin B-12) 1,000 mcg PO DAILY 04/05/21 04/05/21 Unknown 1,000 mcg tablet,extended release (Vitamin B-12 ER) fentanyl 50 mcg/hr transdermal 1 patch TRANSDERMAL Q72H 04/05/21 04/05/21 Unknown patch fluticasone 100 mcg-salmeterol 50 1 inh INHALATION BID 04/05/21 04/05/21 Unknown mcg/dose blistr powdr for inhalation (Jez Inhub) fluticasone propionate 50 1 spray INTRANASAL DAILY PRN 04/05/21 04/05/21 Unknown mcg/actuation nasal spray,suspension hydrochlorothiazide 12.5 mg capsule 12.5 mg PO DAILY 04/05/21 04/05/21 Unknown hydromorphone 8 mg tablet 8 mg PO Q4H PRN 04/05/21 04/05/21 Unknown losartan 50 mg tablet 50 mg PO DAILY 04/05/21 04/05/21 Unknown lubiprostone 8 mcg capsule 16 mcg PO BID 04/05/21 04/05/21 Unknown (Amitiza) melatonin 5 mg tablet 5 mg PO HS PRN 04/05/21 04/05/21 Unknown montelukast 10 mg tablet 10 mg PO DAILY 04/05/21 04/05/21 Unknown naloxegol 25 mg tablet (Movantik) 25 mg PO DAILY 04/05/21 04/05/21 Unknown ondansetron 4 mg disintegrating 4 mg PO Q8H PRN 04/05/21 04/05/21 Unknown tablet pantoprazole 40 mg tablet,delayed 40 mg PO DAILY 04/05/21 04/05/21 Unknown release polyethylene glycol 3350 17 gram 17 g PO DAILY 04/05/21 04/05/21 Unknown oral powder packet sennosides 8.6 mg capsule (senna) 17.2 mg PO BID 04/05/21 04/05/21 Unknown triamcinolone acetonide 0.5 % 1 applic TOPICAL BID PRN 04/05/21 04/05/21 Unknown topical cream Active Medications Generic Name Dose Route Start Last Admin Trade Name Freq PRN Reason Stop Dose Admin Acetaminophen 1,000 mg 04/05/21 21:00 04/06/21 09:06 Acetaminophen 500 Mg Tab PO 05/05/21 20:59 1,000 mg TID YONATHAN Administration Amlodipine Besylate 5 mg 04/05/21 21:00 04/06/21 09:00 Amlodipine Besylate 5 Mg Tab PO 05/05/21 20:59 5 mg BID YONATHAN Administration Atorvastatin Calcium 80 mg 04/05/21 21:00 04/05/21 21:55 Atorvastatin 40 Mg Tab PO 05/05/21 20:59 80 mg HS YONATHAN Administration Carvedilol 12.5 mg 04/05/21 21:00 04/06/21 09:01 Carvedilol 12.5 Mg Tab PO 05/05/21 20:59 12.5 mg BID YONATHAN Administration Fentanyl 50 mcg 04/06/21 09:00 04/06/21 08:52 Fentanyl 50 Mcg/Hr Tdsy TD 04/20/21 08:59 50 mcg Q3D@0900 YONATHAN Administration Fluticasone/Vilanterol 1 puffs 04/06/21 09:00 04/06/21 09:09 Fluticasone/Vilanterol 100/25mcg 14 Puffs/Inhaler INH 05/06/21 08:59 1 puffs DAILY YONATHAN Administration Hydrochlorothiazide 12.5 mg 04/06/21 09:00 04/06/21 08:59 Hydrochlorothiazide 25 Mg Tab PO 05/06/21 08:59 12.5 mg DAILY YONATHAN Administration Hydromorphone HCl 8 mg 04/05/21 20:13 04/06/21 06:24 Hydromorphone Hcl 8 Mg Tab PO 04/19/21 19:14 8 mg Q3H PRN Administration severe pain Sodium Chloride 1,000 mls @ 15 mls/hr 04/05/21 19:15 04/05/21 21:44 Nss 1000ml IV 04/19/21 19:16 15 mls/hr .Q24H YONATHAN Administration Losartan Potassium 50 mg 04/06/21 09:00 04/06/21 09:02 Losartan Potassium 50 Mg Tab PO 05/06/21 08:59 50 mg DAILY YONATHAN Administration Lubiprostone 16 mcg 04/05/21 21:00 04/05/21 21:56 Lubiprostone 8 Mcg Cap PO 05/05/21 20:59 16 mcg BID YONATHAN Administration Miscellaneous 1 ea 04/06/21 08:59 04/06/21 08:51 Fentanyl Patch Remove & Waste N/A 05/06/21 08:58 1 ea Q3D@0859 YONATHAN Administration Miscellaneous 1 ea 04/06/21 00:00 04/06/21 08:51 Check Fentanyl Patch Placement N/A 05/06/21 00:00 1 ea QS YONATHAN Administration Miscellaneous 1 ea 04/05/21 20:45 04/06/21 09:11 Movantik~Order Awaiting Action N/A 05/05/21 20:44 Not Given QS YONATHAN Montelukast Sodium 10 mg 04/06/21 09:00 04/06/21 09:07 Montelukast Sodium 10 Mg Tablet PO 05/06/21 08:59 10 mg DAILY YONATHAN Administration Morphine Sulfate 30 mg 04/05/21 19:15 04/06/21 07:15 Morphine Sulfate Folder Stitcher Operator 30 Mg/30 Ml IV 04/19/21 19:14 30 mg PRN PRN Administration WAX BLENDER Pain Titration Protocol Pantoprazole Sodium 40 mg 04/06/21 09:00 04/06/21 09:08 Pantoprazole 40 Mg Tab PO 05/06/21 08:59 40 mg DAILY YONATHAN Administration Sennosides 17.2 mg 04/05/21 21:00 04/05/21 21:56 Senna 8.6 Mg Tab PO 05/05/21 20:59 17.2 mg BID YONATHAN Administration NPO Date Last Intake of Fluids: 04/06/21 Time Last Intake of Fluids: 09:00 Last Intake of Fluids Comment: sips with meds Date Last Intake of Solids: 04/05/21 Time Last Intake of Solids: 23:00 Past Medical History Medical History Allergic rhinitis Asthma Bladder cancer CAD (coronary artery disease) Cancer related pain Chronic kidney disease (CKD) stage G3a/A1, moderately decreased glomerular filtration rate (GFR) between 45-59 mL/min/1.73 square meter and albuminuria creatinine ratio less than 30 mg/g First degree AV block GERD (gastroesophageal reflux disease) History of alcohol dependence History of [place] (myocardial infarction) HTN (hypertension) Hyperlipidemia Lumbar disc herniation with radiculopathy L2-3 extrusion Lumbosacral spondylosis Peripheral neuropathy Prostate CA Past Family History Family History Mother Bone cancer Past Surgical History Surgical History H/O prostatectomy History of cardiac catheterization History of cataract extraction History of colonoscopy History of cystoscopy History of esophagogastroduodenoscopy (EGD) History of hernia repair History of ileal conduit History of incision and drainage History of laparotomy History of prostate biopsy History of skin graft History of total cystectomy Status post surgical removal and fulguration of bladder neoplasm Social History Smoking Status: Never smoker Hx Alcohol Use: No Hx Substance Use: No Physical Exam Vital Signs Last Vital Signs Temp 36.5 C 04/06/21 07:48 Pulse 74 04/06/21 08:00 Resp 18 04/06/21 07:48 BP 150/71 H 04/06/21 07:48 Pulse Ox 95 04/06/21 07:48 Testing Laboratory Results 04/06/21 07:00 04/06/21 07:00
[2021-04-06] MEDS ORDERED: ATROPINE SULFATE 0.1 MG/ML 10ML SYR IV PRN (11:21)
[2021-04-06] MEDS ORDERED: ePHEDrine sulfate 50 MG/ML AMP IV PRN (11:21)
[2021-04-06] MEDS ORDERED: MoRPHine SULFATE PF 1 MG/ML 10 ML AMP/VIAL ONE (11:24)
[2021-04-06] MEDS ORDERED: IOPAMIDOL INJ 61% 15 ML VIAL INSTIL ONE (12:01)
[2021-04-06] MEDS ORDERED: MoRPHine SULFATE PF 1 MG/ML 10 ML AMP/VIAL EPI ONE (12:15)
[2021-04-06] MEDS ORDERED: fentaNYL citrate 100 MCG/2 ML VIAL IV ONE (12:21)
[2021-04-06] MEDS: MORPHINE SUL INT SPINAL PRN ×4 (12:24→22:42)
--- NOTE | 2021-04-06 12:32 | Operative Report ---
Post Operative Report Pre & Post Diagnosis Operation Date: 04/06/21 10:40 Pre-Op Diagnosis: Malignancy related pelvic and testicular pain. Post-Op Diagnosis: Same I identified the patient and participated in the time-out.: Yes Procedure Operation Date: 04/06/21 10:40 Actual Procedures Insertion of lumbar epidural catheter under fluoroscopic guidance- Dash Soto MD, ROBERT Surgeon aDsh Soto MD, ROBERT Hand Candy Dipper None Estimated Blood Loss 0 Findings Consistent with Post-Op Diagnosis Specimens None Drains None Anesthesia Type MAC Complications none Disposition Accompanied Patient To Recovery: Yes Disposition: Recovery Room Description of Procedure INSERTION OF EPIDURAL CATHETER Preprocedure diagnosis: Malignancy related perineal and testicular pain. Postprocedure diagnosis: Same. Anesthesia: Monitored anesthesia care. Side/Level injected: L4/L5. Surgeon: Dr. Soto. Complications: None. Disposition: To PACU Prior to starting, the Patients diagnosis and the procedure were reviewed with the patient in detail. Possible risks and complications including infection, bleeding, damage to surrounding structures and increased pain were discussed. Alternative therapies were also reviewed. Patients questions were answered and they agreed to proceed. Informed consent was obtained. Allergies and medication list was reviewed. The patient was brought to the procedure room and placed in prone position. Immediately prior to starting the procedure, a ``time out was conducted with the staff and the patient where the patient was identified, proposed procedure was verified, consent was reviewed and the proper site for the planned procedure was identified. Monitors used included intermittent blood pressure with automated device, continuous pulse oximetry and level of consciousness. Patient was not given any intravenous sedation and constant verbal contact was maintained throughout the procedure. Biplanar fluoroscopy was used to assist in placement of the needle as well as to evaluate final needle position prior to the injection. On examination, no signs of skin breakdown or infection were noted at the injection site. The site was cleansed with DuraPrep followed by Betadine. Sterile drapes were applied. A true AP view of the superior endplate of the L5 vertebra was obtained. Skin and soft tissue over the inferior aspect of the interlaminar laminar notch was infiltrated with 3 mL of 1% Xylocaine using a 25 gauge needle. Midline approach was utilized. A 18 gauge, 3.5 inch Tuohy needle was then inserted thro ugh the anesthetized area and advanced under fluoroscopic guidance through the intraspinous ligaments. C-arm was then turned to a true lateral view and the needle was advanced through the ligamentum flavum into the epidural space with [id number] technique with air. Upon entering the epidural space the patient did not experience pain or paresthesia. No CSF was noted. Bevel of the needle was directed in the cephalad direction. A 20-gauge Arrow catheter was inserted approximately 3 cm into the epidural space. Aspiration via the catheter demonstrated no CSF or blood. In a lateral view, 1cc Isovue 300 contrast was injected via the needle under live fluoroscopy. The contrast was noted to be in the dorsal epidural space. No subarachnoid spread of contrast was noted. Presence of contrast was verified and contralateral oblique view. Finally, an AP view was then checked and additional 1cc of the contrast was injected under live fluoroscopy. Neither subdural or subarachnoid spread nor intravascular uptake was noted on plain fluoroscopy. No vascular uptake was noted. Next, 3 mL of 1.5% Xylocaine with 1-200,000 epinephrine was injected was injected via the catheter as a test dose. No change in heart rate was seen. Next, 50 mcg of fentanyl, 2 L of morphine and 8 cc of preservative-free saline injected via the catheter for analgesia. Patient did not experience any pain, paresthesia or discomfort throughout the injection period. Catheter was secured using Steri-Strips and Tegaderm dressing was applied. Abdominal binder was placed. Patient tolerated the procedure uneventfully without complications. Patient was transferred to recovery room. I attest to the content of the Intraoperative Record and any orders documented therein. Any exceptions are noted below.
--- NOTE | 2021-04-06 12:35 | Anesthesiology Progress Note ---
Date of Service April 06, 2021 Anesthesia Post Procedure Vital Signs Vital Signs: Temp Pulse Pulse Pulse Pulse Resp BP 04/06/21 12:15 63 13 04/06/21 12:05 56 L 14 04/06/21 11:59 36.6 C 55 L 17 04/06/21 08:00 74 04/06/21 07:48 36.5 C 77 18 04/06/21 03:50 37.2 C 72 18 04/06/21 00:31 59 L 04/05/21 23:18 37.1 C 67 18 04/05/21 20:36 36.8 C 90 18 04/05/21 19:23 76 04/05/21 17:12 66 18 04/05/21 15:35 36.7 C 86 20 156/85 H 04/05/21 15:29 36.9 C 68 18 BP Pulse Ox 04/06/21 12:15 120/65 97 04/06/21 12:05 122/64 96 04/06/21 11:59 130/71 96 04/06/21 08:00 04/06/21 07:48 150/71 H 95 04/06/21 03:50 134/72 95 04/06/21 00:31 04/05/21 23:18 102/53 L 95 04/05/21 20:36 145/86 H 95 04/05/21 19:23 04/05/21 17:12 154/76 H 98 04/05/21 15:35 96 04/05/21 15:29 149/64 H 98 Pain Intensity Lower Abdomen: Pain Intensity: 7 Transfer of Care Handoff Completed per policy Notes Mental Status: alert / awake / arousable and participated in evaluation Patient Amnestic to Procedure: Yes Nausea / Vomiting: adequately controlled Pain: adequately controlled Airway Patency, RR, SpO2: stable & adequate BP & HR: stable & adequate Hydration State: stable & adequate Anesthetic Complications: no major complications apparent
[2021-04-06] MEDS: ADVANCED PROBIOTIC 1250 MG CAPSULE PO SCH (12:41)
[2021-04-06] MEDS: fentaNYL citrate 100 MCG/2 ML VIAL IV PRN ×4 (14:21→16:38)
--- NOTE | 2021-04-06 16:04 | Communication Note ---
Date of Service: April 06, 2021 Spoke with the PACU nurse who reported patient having 7 out of 10 pain. Morphine 0.4 mg/h has been running for greater than 2 hours. Recommend increasing to morphine 0.5 mg/h in addition to temporizing with IV fentanyl per anesthesia. We will continue to follow the patient.
[2021-04-06] MEDS ORDERED: HYDROmorphone INJ 0.5 MG/0.5 ML SYR ONE ×2 (16:59→17:31)
[2021-04-06] MEDS: HYDROmorphone INJ 1 MG/ML SYRINGE IV PRN ×2 (18:07→18:39)
[2021-04-06] MEDS ORDERED: HYDROmorphone HCL 2 MG TAB PO PRN (18:18)
--- NOTE | 2021-04-06 18:24 | Hospitalist Progress Note ---
Date of Service April 06, 2021 Assessment & Plan (1) Bladder cancer: (2) Cancer related pain: Plan: his is a 71-year-old male who has significant past medical history of CAD, HTN, HLD, hypertriglyceridemia, first-degree AV block, asthma, GERD, history of prostate cancer, metastatic bladder cancer status post resection with ileal conduit now following palliative care secondary to uncontrolled pain presents to ED from pain management to be admitted for CLOTH STOCK SORTER pump. Patient with metastatic bladder cancer status post cystectomy and ileoconduit being admitted for uncontrolled cancer related pain. He follows with palliative care medicine for pain management and recently pain management with Dr. Delgado. On 03/28 he underwent a gastric femoral nerve block and today underwent a superior hypogastric nerve block with mild relief. Pain management on board s/p intrathecal pump placement today by pain management Continue pain control as per Pain management fall precautions (3) CAD (coronary artery disease): no chest pain/sob continue losartan, statin Will resume aspirin in am (4) HTN (hypertension): bp stable continue amlodipine, losartan and hctz (5) Hyperlipidemia: continue statin (6) Chronic kidney disease (CKD) stage G3a/A1, moderately decreased glomerular filtration rate (GFR) between 45-59 mL/min/1.73 square meter and albuminuria creatinine ratio less than 30 mg/g: baseline cr 1.1-1.4 stable (7) DVT prophylaxis: SCD/TEDS Dispo: med tele PCP: Augustin Fish FULL Code Admission and Anticipated Discharge Date Admission Date: April 05, 2021 Subjective Pt was seen and examined for follow up of cancer related pain Sitting in chair with no distress with next to him Pt said that he continues to have excruciating pain He said that his pain currently worst at 10/10 Physical Exam Physical Exam: General- acute distress due to Head- atraumatic Eyes- PERRL, EOMI, ENT- oropharynx clear Neck- supple, no JVD Lungs- clear to auscultation Heart- regular rhythm; no murmur Abdomen- normal bowel sounds, soft, nontender Extremities- no calf tenderness Neuro- alert, oriented x 3; PERRL, EOMI; no facial palsy; no dysarthria Skin- warm & dry Results & Data Results & Data ([facility]) Vital Signs (Past 12 Hours) Vital Signs Temp Pulse Pulse Pulse Resp BP Pulse Ox 07/14/21 17:30 85 28 H 157/71 H 98 04/06/21 17:00 90 16 96 04/06/21 16:00 66 16 131/74 94 04/06/21 15:30 70 16 161/82 H 96 04/06/21 14:30 64 15 127/70 95 04/06/21 14:15 68 19 146/72 H 96 04/06/21 14:00 67 20 152/82 H 96 04/06/21 13:45 63 18 125/60 94 04/06/21 13:30 55 L 13 133/63 96 04/06/21 13:15 63 18 138/70 97 04/06/21 13:05 70 18 146/72 H 97 04/06/21 12:55 58 L 17 148/67 H 97 04/06/21 12:45 58 L 12 122/63 96 04/06/21 12:35 36.5 C 60 13 126/61 96 04/06/21 12:25 57 L 12 127/64 96 04/06/21 12:15 63 13 120/65 97 04/06/21 12:05 56 L 14 122/64 96 04/06/21 11:59 36.6 C 55 L 17 130/71 96 04/06/21 08:00 74 04/06/21 07:48 36.5 C 77 18 150/71 H 95 (1) Bladder cancer Bladder location: unspecified site Qualified Code(s): C67.9 - Malignant neoplasm of bladder, unspecified
[2021-04-06] MEDS: KETOROLAC TROMETHAMINE 15 MG/ML VIAL IV PRN (18:38)
[2021-04-06] MEDS: HYDROmorphone INJ 0.5 MG/0.5 ML SYR IV PRN (20:34)
[2021-04-06] MEDS: ATORVASTATIN 40 MG TAB PO SCH (20:46)
[2021-04-06] MEDS ORDERED: Nursing to Pharmacy Communication SCH (21:45)
[2021-04-06] MEDS: SODIUM CHLORIDE 0.9% 1000ML 1,000 ML IV SCH (23:12)
[2021-04-07] MEDS: HYDROmorphone INJ 0.5 MG/0.5 ML SYR IV PRN ×2 (00:20→04:09)
[2021-04-07] MEDS: KETOROLAC TROMETHAMINE 15 MG/ML VIAL IV PRN ×3 (06:31→21:02)
--- NOTE | 2021-04-07 08:41 | Pain Management Progress Note ---
Date of Service April 07, 2021 Assessment & Plan (1) Cancer related pain: (2) Bladder cancer: Bladder location: unspecified site Qualified Code(s): C67.9 - Malignant neoplasm of bladder, unspecified (3) Prostate CA: Plan: 1. Will adjust epidural morphine to 0.8 mg/h with plans for further adjustment throughout today to assess efficacy/tolerability 2. Will adjust ketorolac 15 mg from every 12 hours to every 6 hours for as needed breakthrough pain 3. Patient may continue with IV hydromorphone for as needed breakthrough pain 4. Consider addition of oral NSAID therapy upon discharge with meloxicam 15 mg daily Admission and Anticipated Discharge Date Admission Date: April 05, 2021 Subjective Mr. Rios is a 71-year-old white male known to the pain service with history of metastatic bladder cancer with cancer related pain in the left abdomen/groin and testicular region who underwent placement of epidural morphine catheter yesterday and attempt to improve cancer associated pain. The patient was experiencing poor pain control with fentanyl transdermal and hydromorphone for breakthrough pain. Patient is currently receiving morphine 0.7 mg/h which has been increased throughout the past 12 hours. Patient continues to experience pain in the left lower abdomen/groin and testicular region which is episodic and sharp/burning in characteristic ranging between a 7-9/10. Patient reports that his pain is similar to prior regarding severity, location and characteristic, but does indicate that use of IV Toradol seems to be effective at diminishing the severity of his pain. He is not experiencing any difficulties with pruritus, nausea, vomiting, sedation or brain fog with use of the epidural morphine. Patient has no further constitutional complaints. Plan of care discussed with Dr. Oriana Delgado. Pain Assessment Pain Assessment Full Body Front + Back: 1. Left lower abdomen, groin and testicular region Pain scale - at its best (0-10): 7 Pain scale - at its worst (0-10): 9 Physical Exam Physical Exam: General: Patient lying quietly upon entering the room in the left lateral decubitus position. Speech and thought process appropriate. Mood and affect appropriate. Cognition intact. Abdomen: Soft and nondistended. Back/spine: Epidural catheter intact without evidence of edema, erythema or skin breakdown.
[2021-04-07] MEDS: POLYETHYLENE (MIRALAX) 17 GM PACK PO SCH (08:57)
[2021-04-07] MEDS: ACETAMINOPHEN 500 MG TAB PO SCH ×3 (08:58→21:12)
[2021-04-07] MEDS: LOSARTAN POTASSIUM 50 MG TAB PO SCH (08:59)
[2021-04-07] MEDS: hydroCHLOROthiazide 25 MG TAB PO SCH (08:59)
[2021-04-07] MEDS: PANTOprazole 40 MG TAB PO SCH (09:02)
[2021-04-07] MEDS: MONTELUKAST SODIUM 10 MG TABLET PO SCH (09:02)
[2021-04-07] MEDS: amLODIPine BESYLATE 5 MG TAB PO SCH ×2 (09:03→21:03)
[2021-04-07] MEDS: LUBIPROSTONE 8 MCG CAP PO SCH ×2 (09:03→21:03)
[2021-04-07] MEDS: carvediloL 12.5 MG TAB PO SCH ×2 (09:03→20:44)
[2021-04-07] MEDS: SENNA 8.6 MG TAB PO SCH ×2 (09:04→21:02)
[2021-04-07] MEDS: FLUTICASONE/VILANTEROL 100/25MCG 14 PUFFS/INHALER INH SCH (09:05)
[2021-04-07] MEDS: MORPHINE SUL INT SPINAL PRN ×2 (09:05)
[2021-04-07] MEDS: CHECK fentaNYL PATCH PLACEMENT SCH (10:10)
--- NOTE | 2021-04-07 12:16 | Communication Note ---
Date of Service: April 07, 2021 Spoke with nursing. Pt reporting pain 5-6/10, ambulated the halls this AM with minimal difficulty. Feels slightly sleepy, but comfortable w/o additional op iates needed. No other S.E. noted. Did utilize toradol with good effect. Will continue with morphine epidural at 0.8mg/hr for now.
[2021-04-07] MEDS: ADVANCED PROBIOTIC 1250 MG CAPSULE PO SCH (12:35)
--- NOTE | 2021-04-07 15:47 | Communication Note ---
Date of Service: April 07, 2021 Patient doing well with 3/10 pain, resting comfortably, ambulating well. Will continue morphine epidural at 0.8mg/hr and plan for discharge tomorrow AM. Will pull epidural catheter and convert to appropriate fentanyl patch dosing. Will speak with palliative care/oncology, but plan for tentative implant intrathecal drug administration system 04/19/21.
[2021-04-07] MEDS: ATORVASTATIN 40 MG TAB PO SCH (21:03)
[2021-04-07] MEDS: SODIUM CHLORIDE 0.9% 1000ML 1,000 ML IV SCH (21:36)
--- NOTE | 2021-04-07 23:16 | Hospitalist Progress Note ---
Date of Service April 07, 2021 Assessment & Plan (1) Bladder cancer: (2) Cancer related pain: Plan: his is a 71-year-old male who has significant past medical history of CAD, HTN, HLD, hypertriglyceridemia, first-degree AV block, asthma, GERD, history of prostate cancer, metastatic bladder cancer status post resection with ileal conduit now following palliative care secondary to uncontrolled pain presents to ED from pain management to be admitted for STRIP WINDER pump. Patient with metastatic bladder cancer status post cystectomy and ileoconduit being admitted for uncontrolled cancer related pain. He follows with palliative care medicine for pain management and recently pain management with Dr. Delgado. On 03/28 he underwent a gastric femoral nerve block and today underwent a superior hypogastric nerve block with mild relief. Pain management on board s/p intrathecal pump placement on04/06 by pain management Continue pain control as per Pain management Clinically improved (3) CAD (coronary artery disease): no chest pain/sob continue losartan, statin Will resume aspirin in am (4) HTN (hypertension): bp stable continue amlodipine, losartan and hctz (5) Hyperlipidemia: continue statin (6) Chronic kidney disease (CKD) stage G3a/A1, moderately decreased glomerular filtration rate (GFR) between 45-59 mL/min/1.73 square meter and albuminuria creatinine ratio less than 30 mg/g: baseline cr 1.1-1.4 stable (7) DVT prophylaxis: SCD/TEDS Dispo: med tele PCP: Augustin Fish FULL Code Admission and Anticipated Discharge Date Admission Date: April 05, 2021 Subjective Patient was seen and examined for follow-up on cancer related pain Lying in bed with no distress and resting comfortable His pain is much better today compared to yesterday He said he is able to sleep better Denies any chest pain, palpitation, dizziness, shortness of breath. Physical Exam Physical Exam: General-no acute distress Head- atraumatic Eyes- PERRL, EOMI, ENT- oropharynx clear Neck- supple, no JVD Lungs- clear to auscultation Heart- regular rhythm; no murmur Abdomen- normal bowel sounds, soft, nontender Extremities- no calf tenderness Neuro- alert, oriented x 3; PERRL, EOMI; no facial palsy; no dysarthria Skin- warm & dry Results & Data Results & Data ([facility]) Vital Signs (Past 12 Hours) Vital Signs Temp Pulse Pulse Resp BP BP Pulse Ox 04/07/21 19:07 36.9 C 58 L 20 153/77 H 96 04/07/21 15:30 36.7 C 68 19 155/77 H 98 04/07/21 15:00 70 04/07/21 12:01 36.6 C 72 18 113/66 99 (1) Bladder cancer Bladder location: unspecified site Qualified Code(s): C67.9 - Malignant neoplasm of bladder, unspecified
[2021-04-08] MEDS: KETOROLAC TROMETHAMINE 15 MG/ML VIAL IV PRN ×3 (03:36→14:10)
[2021-04-08] MEDS ORDERED: fentaNYL 100 MCG/HR TDSY TD SCH (08:15)
[2021-04-08] MEDS: POLYETHYLENE (MIRALAX) 17 GM PACK PO SCH (08:26)
[2021-04-08] MEDS: SENNA 8.6 MG TAB PO SCH (08:33)
[2021-04-08] MEDS: LUBIPROSTONE 8 MCG CAP PO SCH (08:33)
[2021-04-08] MEDS: ACETAMINOPHEN 500 MG TAB PO SCH ×2 (08:33→14:10)
[2021-04-08] MEDS: MONTELUKAST SODIUM 10 MG TABLET PO SCH (08:34)
[2021-04-08] MEDS: PANTOprazole 40 MG TAB PO SCH (08:34)
[2021-04-08] MEDS: LOSARTAN POTASSIUM 50 MG TAB PO SCH (08:34)
[2021-04-08] MEDS: amLODIPine BESYLATE 5 MG TAB PO SCH (08:34)
[2021-04-08] MEDS: carvediloL 12.5 MG TAB PO SCH (08:34)
[2021-04-08] MEDS: hydroCHLOROthiazide 25 MG TAB PO SCH (08:35)
[2021-04-08] MEDS: FLUTICASONE/VILANTEROL 100/25MCG 14 PUFFS/INHALER INH SCH (08:36)
[2021-04-08 09:06] LABS: Basophils # (auto) 0.01 K/uL (0-0.2); Basophils % (auto) 0.1 %; Eosinophils # (auto) 0.09 K/uL (0-0.5); Eosinophils % (auto) 1.2 %; Hematocrit (blood only) 37.9 % (42-52); Hemoglobin 12.2 g/dL (14.0-18.0); Immature Granulocytes # (auto) 0.01 K/uL (0.00-0.02); Immature Granulocytes % (auto) 0.1 %; Lymphocytes # (auto) 0.62 K/uL (1.2-3.4); Lymphocytes % (auto) 8.1 %; Mean Corpuscular Hemoglobin 29.7 pg (25-34); Mean Corpuscular Hgb Conc 32.2 g/dL (32-36); Mean Corpuscular Volume 92.2 fL (80-100); Mean Platelet Volume 10.2 fL (7.4-10.4); Monocytes # (auto) 0.67 K/uL (0.11-0.59); Monocytes % (auto) 8.8 %; Neutrophils # (auto) 6.23 K/uL (1.4-6.5); Neutrophils % (auto) 81.7 %; Platelet Count 291 K/uL (130-400); RDW Coefficient of Variation 13.7 % (11.5-14.5); RDW Standard Deviation 46.4 fL (36.4-46.3); Red Blood Count 4.11 M/uL (4.7-6.1); White Blood Count 7.63 K/uL (4.8-10.8)
[2021-04-08 09:35] LABS: BUN Creatinine Ratio 46.8 (10-20); Calcium 9.9 mg/dl (8.5-10.1); Est GFR (African American) 101.7 ml/min; Est GFR (Non-African American) 87.7 ml/min; Potassium 4.1 mmol/L (3.5-5.1)
--- NOTE | 2021-04-08 09:47 | XRay Report ---
XR chest 2V PA/lateral CLINICAL HISTORY: Preoperative chest DRY COUGH COMPARISON STUDY: No previous studies for comparison. FINDINGS: The cardiac and mediastinal contours are normal. There is no evidence of focal pulmonary co nsolidation. There is no evidence of failure. No pleural effusions are visualized.[There is a thoraco lumbar scoliosis. Indistinctness left heart border, is likely secondary to atelectasis/fat pad. IMPRESSION: No active disease in the chest. ACT 112: Negative or not required by law. Electronically signed by: Daren Saenz M.D. 04/08/2021 9:45 AM
[2021-04-08 09:49] LABS: Prothrombin Time 10.3 Seconds (9.0-12.0)
--- NOTE | 2021-04-08 11:05 | Hospitalist Progress Note ---
Date of Service April 08, 2021 Assessment & Plan (1) Bladder cancer: (2) Cancer related pain: Plan: his is a 71-year-old male who has significant past medical history of CAD, HTN, HLD, hypertriglyceridemia, first-degree AV block, asthma, GERD, history of prostate cancer, metastatic bladder cancer status post resection with ileal conduit now following palliative care secondary to uncontrolled pain presents to ED from pain management to be admitted for CHEMICAL ECONOMIST pump. Patient with metastatic bladder cancer status post cystectomy and ileoconduit being admitted for uncontrolled cancer related pain. He follows with palliative care medicine for pain management and recently pain management with Dr. Delgado. On 03/28 he underwent a gastric femoral nerve block and today underwent a superior hypogastric nerve block with mild relief. Pain management on board s/p intrathecal pump placement on04/06 by pain management Continue pain control as per Pain management Fentanyl increased to 100mcg q3d Plan for tentative implant intrathecal drug administration system 04/19/21. Clinically improved significantly Ok from pain management standpoint to discharge home Follow up with pain management outpatient (3) CAD (coronary artery disease): no chest pain/sob continue losartan, statin Will resume aspirin in am (4) HTN (hypertension): bp stable continue amlodipine, losartan and hctz (5) Hyperlipidemia: continue statin (6) Chronic kidney disease (CKD) stage G3a/A1, moderately decreased glomerular filtration rate (GFR) between 45-59 mL/min/1.73 square meter and albuminuria creatinine ratio less than 30 mg/g: baseline cr 1.1-1.4 stable (7) DVT prophylaxis: SCD/TEDS Dispo: med tele PCP: Augustin Fish FULL Code Admission and Anticipated Discharge Date Admission Date: April 05, 2021 Subjective Patient was seen and examined for follow-up on cancer related pain Pt was walking in his room and smiling because he is felling much better He said that he is able to walk around He said that his pain is well control Denies any chest pain, palpitation, dizziness, shortness of breath. Physical Exam Physical Exam: General-no acute distress Head- atraumatic Eyes- PERRL, EOMI, ENT- oropharynx clear Neck- supple, no JVD Lungs- clear to auscultation Heart- regular rhythm; no murmur Abdomen- normal bowel sounds, soft, nontender Extremities- no calf tenderness Neuro- alert, oriented x 3; PERRL, EOMI; no facial palsy; no dysarthria Skin- warm & dry Results & Data Results & Data ([facility]) Vital Signs (Past 12 Hours) Vital Signs Temp Pulse Pulse Resp BP Pulse Ox 04/08/21 07:45 36.6 C 58 L 17 136/71 98 04/08/21 07:00 68 04/08/21 03:39 36.8 C 50 L 16 124/70 97 04/08/21 00:12 73 04/07/21 23:53 36.9 C 65 16 123/66 94 (1) Bladder cancer Bladder location: unspecified site Qualified Code(s): C67.9 - Malignant neoplasm of bladder, unspecified
--- NOTE | 2021-04-08 11:07 | Discharge Summary ---
Date of Service April 08, 2021 Admission HPI Per Admitting Provider This is a 71-year-old male who has significant past medical history of CAD, HTN, HLD, hypertriglyceridemia, first-degree AV block, asthma, GERD, history of prostate cancer, metastatic bladder cancer status post resection with ileal conduit now following palliative care secondary to uncontrolled pain presents to ED from pain management to be admitted for POLICE INSPECTOR pump. He is currently established with palliative medicine he was been managing his pain. He is currently on fentanyl patch which was recently increased to 50 mcg every 72 hours, Dilaudid 8 mg every 4 hours as needed, Soma as needed and today underwent a superior hypogastric nerve block by pain management. On 03/28 he also underwent a genitofemoral nerve block. Due to uncontrolled pain he was recommended for admission for morphine POLICE INSPECTOR pump and intrathecal pump. Currently he complains of lower abdominal pain that is fleeting, comes and goes, described as burning, worsening. He does feel it gets improved with NSAIDS but these were stopped due to increase in renal function. He states he will be fine one minute and then the next pain will take him to the ground. is at bedside. He also has tried ice with minimal relief. He denies f/c/s, dizziness, lightheaded, chest pain, sob, uri sx, cough, n/v/d. He does have chronic opiate induced constipation which has been improved with amitiza. He is hemodynamically stable and labs are pending. Admission Exam Per Admitting Provider Constitutional: WD/WN, vitals as above, appears in pain, sitting up in bed, pleasant, answers questions appropriately Head: Normocephalic, Atraumatic Eyes: PERRL, conjunctivae normal, anicteric sclerae ENMT: external ear and nose normal, oropharynx normal Neck: trachea midline, no thyromegaly normal visual inspection Respiratory: normal respiratory effort, lungs clear to auscultation, no wheeze, rales, rhonchi. Normal insp/exp effort, no accessory muscle use Cardiovascular: RRR, no murmur, no edema Vessels: no JVD or carotid bruit Chest: normal inspection of chest Abdomen: +Ileoconduit, normal bowel sounds, soft, nontender, no hepatosplenomegaly Musculoskeletal: no cyanosis or clubbing, extremities motor strength 5/5 Skin: no rashes, warm and dry normal turgor Neurologic: PERRL, EOMI, accommodation nl, no face palsy, no dysarthria CN's II-XI intact bilaterally and moves all extremities Psychiatric: A+Ox3, euthymic affect Lymphatic: no cervical or axillary lymphadenopathy : normal Principal Diagnosis (1) Bladder cancer: (2) Cancer related pain: Discharge Exam General-no acute distress Head- atraumatic Eyes- PERRL, EOMI, ENT- oropharynx clear Neck- supple, no JVD Lungs- clear to auscultation Heart- regular rhythm; no murmur Abdomen- normal bowel sounds, soft, nontender Extremities- no calf tenderness Neuro- alert, oriented x 3; PERRL, EOMI; no facial palsy; no dysarthria Skin- warm & dry Discharge Data Allergies Allergy/AdvReac Type Severity Reaction Status Date / Time Sulfa (Sulfonamide Allergy Severe lips swell Verified 04/05/21 13:18 Antibiotics) sulfamethoxazole Allergy Intermediate Rash Verified 04/05/21 13:18 [From Bactrim] trimethoprim [From Bactrim] Allergy Intermediate Rash Verified 04/05/21 13:18 baclofen Allergy Unknown Unverified 04/05/21 13:18 cannabidiol (CBD) extract Allergy Unknown Verified 04/05/21 13:18 Consultations 04/05/21 16:13 ED Decision to Admit Stat 04/05/21 16:33 Consult Pain Management Routine Procedures Performed Operation Date: 04/06/21 10:40 Actual Procedures p Intrathecal Morphine Trial(Not Applicable) - Dash Soto MD, FIPP Ordered Studies 04/06/21 10:40 FL fluoro for pain procedure Routine XR chest 2V PA/lateral CLINICAL HISTORY: Preoperative chest DRY COUGH COMPARISON STUDY: No previous studies for comparison. FINDINGS: The cardiac and mediastinal contours are normal. There is no evidence of focal pulmonary consolidation. There is no evidence of failure. No pleural effusions are visualized.[There is a thoracolumbar scoliosis. Indistinctness left heart border, is likely secondary to atelectasis/fat pad. IMPRESSION: No active disease in the chest. ACT 112: Negative or not required by law. Electronically signed by: Daren Saenz M.D. 04/08/2021 9:45 AM Dictated: 04/08/21943Transcribed: 04/08/21943 Hospital Course (1) Bladder cancer: (2) Cancer related pain: his is a 71-year-old male who has significant past medical history of CAD, HTN, HLD, hypertriglyceridemia, first-degree AV block, asthma, GERD, history of prostate cancer, metastatic bladder cancer status post resection with ileal conduit now following palliative care secondary to uncontrolled pain presents to ED from pain management to be admitted for POLICE INSPECTOR pump. Patient with metastatic bladder cancer status post cystectomy and ileoconduit being admitted for uncontrolled cancer related pain. He follows with palliative care medicine for pain management and recently pain management with Dr. Delgado. On 03/28 he underwent a gastric femoral nerve block and today underwent a superior hypogastric nerve block with mild relief. Pain management on board s/p intrathecal pump placement on04/06 by pain management Continue pain control as per Pain management Fentanyl increased to 100mcg q3d Plan for tentative implant intrathecal drug administration system 04/19/21. Clinically improved significantly Ok from pain management standpoint to discharge home Follow up with pain management outpatient (3) CAD (coronary artery disease): no chest pain/sob continue losartan, statin Will resume aspirin in am (4) HTN (hypertension): bp stable continue amlodipine, losartan and hctz (5) Hyperlipidemia: continue statin (6) Chronic kidney disease (CKD) stage G3a/A1, moderately decreased glomerular filtration rate (GFR) between 45-59 mL/min/1.73 square meter and albuminuria creatinine ratio less than 30 mg/g: baseline cr 1.1-1.4 stable (7) DVT prophylaxis: SCD/TEDS Dispo: med tele PCP: Augustin Fish FULL Code Total Time Total Time Spent Total Time Spent (In Minutes): 35 minutes Discharge Plan Discharge Items Patient Disposition: Home - Self-Care Reason For Visit: NO PCP Discharge Diagnosis: Cancer related pain, bladder cancer Activity: Resume your previous activity Lifting: No more than 25 pounds Bathing Comment: May shower, not bathing for 3 days Sexual Activity: When tolerated Exercise/Sports: As tolerated Driving/Machine Use: Resume 1 day after discharge Weightbearing: Full weightbearing Non-emergency contact: Pain Management Call non-emergency contact if: you have any medication questions, your pain is not controlled and your temperature is above 101.5 Follow-up/Referrals: Augustin Fish MD [Primary Care Provider] - (Date & Time 04/14/2021 11:00 AM Provider Augustin Fish MD [facility] ) Diet: Regular Addtl Attending Provider Instructions: * Will increase fentanyl to 100 mcg every 72 hours * Utilize hydromorphone for as needed breakthrough pain as prescribed * Will initiate meloxicam 7.5 mg twice daily * Plan for intrathecal pump and catheter implantation on 04/19/2021 Pending Studies at Discharge: Yes Stand-Alone Forms: [facility], Opioid Pain Management, Smoking Cessation Medications and DC Order Prescriptions: Continued acetaminophen [Tylenol] 325 mg tablet 650 mg PO QID PRN (Reason: Pain) RF: 0 naloxone 4 mg/actuation spray,non-aerosol 1 spray intranasal Q3M PRN (Reason: opioid overdose) Qty: 2 RF: 0 meloxicam 7.5 mg tablet 7.5 mg PO BID Qty: 60 RF: 2 losartan 50 mg Tablet 50 mg PO DAILY RF: 0 carisoprodol [Soma] 350 mg Tablet 350 mg PO TID PRN (Reason: Muscle Spasm) RF: 0 cyanocobalamin (vitamin B-12) [Vitamin B-12] 1,000 mcg tablet extended release 1,000 mcg PO DAILY RF: 0 atorvastatin 80 mg Tablet 80 mg PO HS RF: 0 carvedilol 12.5 mg Tablet 12.5 mg PO BID RF: 0 polyethylene glycol 3350 17 gram Powder In Packet 17 g PO DAILY RF: 0 triamcinolone acetonide 0.5 % Cream 1 applic TOPICAL BID PRN (Reason: Rash) RF: 0 hydromorphone 8 mg Tablet 8 mg PO Q4H PRN (Reason: Pain) RF: 0 amlodipine 5 mg Tablet 5 mg PO BID RF: 0 aspirin 81 mg Tablet,Delayed Release (Dr/Ec) 81 mg PO DAILY RF: 0 Lactobacillus acidophilus Tablet 1,000 mmu cells PO DAILY@1200 RF: 0 bisacodyl 10 mg Suppository 10 mg TN DAILY PRN (Reason: Constipation) RF: 0 pantoprazole 40 mg Tablet,Delayed Release (Dr/Ec) 40 mg PO DAILY RF: 0 hydrochlorothiazide 12.5 mg Capsule 12.5 mg PO DAILY RF: 0 montelukast 10 mg Tablet 10 mg PO DAILY RF: 0 fluticasone propion-salmeterol [Wixela Inhub] 100-50 mcg/dose Blister With Device 1 inh INHALATION BID RF: 0 ondansetron 4 mg Tablet,Disintegrating 4 mg PO Q8H PRN (Reason: Nausea) RF: 0 fluticasone propionate 50 mcg/actuation Johnson,Suspension 1 spray INTRANASAL DAILY PRN (Reason: allergies) RF: 0 clotrimazole 1 % Cream 1 applic TOPICAL BID PRN (Reason: Rash) RF: 0 senna 8.6 mg Capsule 17.2 mg PO BID RF: 0 lubiprostone [Amitiza] 8 mcg Capsule 16 mcg PO BID RF: 0 melatonin 5 mg Tablet 5 mg PO HS PRN (Reason: Insomnia) RF: 0 albuterol sulfate [Ventolin HFA] 90 mcg/actuation Hfa Aerosol Inhaler 2 puff INHALATION Q6H PRN (Reason: sob) RF: 0 Movantik 25 mg tablet 25 mg PO DAILY RF: 0 Discontinued fentanyl 50 mcg/hr Patch 72 Hour 1 patch TRANSDERMAL Q72H RF: 0 No Action fentanyl 100 mcg/hr patch 72 hour 1 patch transdermal Q3D@0815 Qty: 5 RF: 0 Discharge Orders: Discharge Order (Routine); Ordered 04/08/21 Ordered By: Nic Galeano Admission Data Admit Date/Time: 04/05/21 16:33 Attending Provider: Rebecca Vega Admit Provider: Brunilda Hillman Primary Care Provider: Augustin Fish Other Providers: Brunilda Hillman ; Oriana Delgado Other Interventions: Discharge Summary Assessment (RN) Last Done: 04/08/21 13:46
--- NOTE | 2021-04-08 12:41 | Pain Management Progress Note ---
Date of Service April 08, 2021 Assessment & Plan (1) Cancer related pain: (2) Bladder cancer: Bladder location: unspecified site Qualified Code(s): C67.9 - Malignant neoplasm of bladder, unspecified (3) Abdominal pain: Abdominal location: unspecified location Qualified Code(s): R10.9 - Unspecified abdominal pain Plan: 1. Epidural morphine trial was discontinued today due to adequate efficacy of pain control without side effects. We discussed at length intrathecal opiate therapy moving forward and implantation of intrathecal pump and catheter will be system. The procedure and the device was discussed at length with the patient. He verbalized understanding. He does wish to pursue the procedure which will tentatively planned for 04/19/2021. 2. Will initiate meloxicam 7.5 mg twice daily for home use-prescription was sent electronically 3. Will complete preoperative EKG, chest x-ray and labs prior to discharge 4. Narcan prescription will be sent electronically to his pharmacy. Patient was instructed on utilization. 5. Will resume fentanyl at 100 mcg every 72 hour dosing which was converted utilizing his most recent dose of epidural morphine of 0.8 mg/h. 6. Patient will continue with hydromorphone for as needed breakthrough pain. Patient indicates he is not currently in need of a prescription. Pain clinic will assume prescribing of his opiate therapy at this time. 7. Patient will be discharged to home today and undergo follow-up visit in pain clinic on 04/12/2021 Admission and Anticipated Discharge Date Admission Date: April 05, 2021 Subjective Mr. Rios has continued to do well with improved pain control with epidural mo rphine titrated to 0.8 mg/h over the past 24 hours. He has not utilized hydromorphone for as needed breakthrough pain. He has continued utilize Toradol at roughly every 6-8-hour intervals which he does find to be beneficial. He is reporting no apparent side effects other than some mild sedation at this time. Patient is indicating his current pain is a 3-4/10. His pain has ranged between a 3-6/10 over the past 24 hours per his report. He has no further constitutional complaints. Pain Assessment Pain Assessment Full Body Front + Back: 1. Left lower abdomen/groin and scrotal/testicular pain Pain scale - at its best (0-10): 3 Pain scale - at its worst (0-10): 6 Physical Exam Physical Exam: General: Patient lying quietly upon entering the room in no acute distress. Speech and thought process appropriate. Mood and affect appropriate. Cognition intact. Abdomen: Soft and nondistended. Generalized tenderness in the left lower quadrant and groin to palpation. No rebound or guarding. Back/spine: Abdominal binder was removed for visual inspection. Epidural catheter remained intact. Dressing was removed over the epidural catheter. The epidural catheter was then removed without complication. The tip remained intact. The site was then covered with a sterile gauze and tape. Neurological: Cranial nerves grossly intact. Patient was able to stand from a sitting position without limitation or exacerbation of pain.
[2021-04-08] MEDS: ADVANCED PROBIOTIC 1250 MG CAPSULE PO SCH (12:47)
--- NOTE | 2021-04-08 13:42 | Electrocardiogram Report ---
Test Reason : Blood Pressure : / mmHG Vent. Rate : 065 BPM Atrial Rate : 065 BPM P-R Int : 198 ms QRS Dur : 108 ms QT Int : 406 ms P-R-T Axes : 064 026 042 degrees QTc Int : 422 ms Sinus rhythm with occasional Premature ventricular complexes Low voltage QRS Borderline ECG No previous ECGs available Confirmed by Raciel Winters ([id number]) on 04/08/2021 1:41:28 PM Referred By: REFERRED SELF Confirmed By:Benny Winters
[2021-04-08] MEDS ORDERED: CHECK fentaNYL PATCH PLACEMENT SCH (16:00)
== END 2021-04-08 14:30 | disposition home or self-care (01) | DRG 948 ==
LOC: ED 15:29 → SUATTDRO 16:33 → 2W 16:33 → 1E 04-06 12:32 → 2S 04-06 16:33